=== PATIENT | male | born 1935 | race Caucasian/White ===

== ENCOUNTER → 2016-08-07 | Outpatient (CLI) | payer MEDICARE, OTHER ==
[~2016-08-07] MED LIST: AML5T PO; ASPI81TA27 PO; CLOP75TA28 PO; LISI40TA PO; METF-312 PO; METO100T87 PO
[2016-08-07 10:50] VITALS: BP 140/70
[2016-08-07 17:40] LABS: Basophils # (auto) 0 uL; Basophils % (auto) 0.2 % (0.0-2.0); Eosinophils # (auto) 0.3 uL; Hematocrit 39.1 % (41.0-53.0); Hemoglobin 12.6 g/dL (13.5-17.5); Lymphocytes # (auto) 1.4 uL; Lymphocytes % (auto) 23.3 % (10.0-50.0); Mean Corpuscular Hemoglobin 30.6 pg (28.0-32.0); Mean Corpuscular Hgb Conc. 32.4 g/dL (32.0-36.0); Mean Corpuscular Volume 94.5 fL (80.0-100.0); Monocytes # (auto) 0.7 uL; Monocytes % (auto) 11.1 % (0.0-12.0); Neutrophils # (auto) 3.7 uL; Neutrophils % (auto) 60.4 % (37.0-80.0); Platelet Count (auto) 262 10^3/uL (140-450); Red Cell Distribution Width 14.4 % (11.6-16.0); White Blood Cell 6.1 10^3/uL (4.4-10.8)
[2016-08-07 17:54] LABS: INR 1.01 (0.9-1.15); Prothrombin Time 10.4 sec (9.37-12.3)
[2016-08-07 18:13] LABS: BUN/Creatinine Ratio 19.8; Calcium 9.3 mg/dL (8.5-10.1); Potassium 4.2 mmol/L (3.5-5.1)
== END | disposition home or self-care (01) ==
LOC: Rad HDHVI 10:46
PROVIDERS: ATTEND Internal Medicine Cardiovascular Disease
DX: I10 Essential (primary) hypertension (principal); D64.9 Anemia, unspecified; R79.1 Abnormal coagulation profile
CPT/HCPCS: 36415; 71020; 80048; 85025; 85610; 85730; G0463

== ENCOUNTER → 2016-08-10 | Day surgery (SDC) | payer MEDICARE, OTHER ==
[~2016-08-10] MED LIST changes: +ANGIOMAX 250 MG VIAL IV ONE; +EPTIFIBATIDE INJ (2MG/ML) 10ML VIAL IV ONE; +IOHEXOL 350 MG/ML 100ML IJ ONE; +LIDOCAINE 2%HCL (LOCAL ANESTH.) INJ 20ML MDV ONE; +MIDAZOLAM HCL 1MG/1ML-2 ML VIAL ONE; +SODIUM CHL 0.9% 0 ML ONE; +fentaNYL CITRATE 100 MCG/2 ML VL ONE
== END | disposition home or self-care (01) ==
LOC: CATH 07:53
PROVIDERS: ATTEND Internal Medicine Cardiovascular Disease
DX: I25.10 Atherosclerotic heart disease of native coronary artery without angina pectoris (principal); I10 Essential (primary) hypertension; I73.9 Peripheral vascular disease, unspecified
CPT/HCPCS: 36246; C1760; C1769; C1887; C1894; J1644; J2250; J3010; J7030; Q9967; 99152

== ENCOUNTER 2019-02-23 21:00 | Emergency (ER) | payer MEDICARE, OTHER ==
[~2019-02-23] VITALS: Ht 182.9 cm; Wt 81.6 kg
[~2019-02-23 21:00] MED LIST changes: -AML5T PO; -ANGIOMAX 250 MG VIAL IV ONE; +ASPI81CH43 PO; -ASPI81TA27 PO; +ATOR20TA PO; +COEN100C15 PO; -EPTIFIBATIDE INJ (2MG/ML) 10ML VIAL IV ONE; +FURO1TAB33 PO; +HYDR-4296 PO; -IOHEXOL 350 MG/ML 100ML IJ ONE; +ISOS5TAB20 PO; -LIDOCAINE 2%HCL (LOCAL ANESTH.) INJ 20ML MDV ONE; -LISI40TA PO; +MAGN400T21 PO; +MET50T PO; -METF-312 PO; -METO100T87 PO; -MIDAZOLAM HCL 1MG/1ML-2 ML VIAL ONE; +MYCO500T PO; +POTA10TA51 PO; +RANO500T2 PO; -SODIUM CHL 0.9% 0 ML ONE; +[UNRECOGNIZED DRUG - CODE] PO; -fentaNYL CITRATE 100 MCG/2 ML VL ONE
[2019-02-23 22:09] LABS: Basophils # (auto) 0 uL; Basophils % (auto) 0.4 % (0.0-2.0); Eosinophils # (auto) 0.1 uL; Eosinophils % (auto) 1.3 % (0.0-7.0); Hematocrit 34.9 % (41.0-53.0); Hemoglobin 11.7 g/dL (13.5-17.5); Lymphocytes # (auto) 1.4 uL; Lymphocytes % (auto) 16.6 % (10.0-50.0); Mean Corpuscular Hemoglobin 30.9 pg (28.0-32.0); Mean Corpuscular Hgb Conc. 33.6 g/dL (32.0-36.0); Monocytes # (auto) 0.8 uL; Monocytes % (auto) 10.2 % (0.0-12.0); Neutrophils # (auto) 5.9 uL; Neutrophils % (auto) 71.5 % (37.0-80.0); Nucleated Red Blood Cells % 0.1 %; Platelet Count (auto) 350 10^3/uL (140-450); Red Blood Cells 3.79 10^6/uL (4.5-5.90); Red Cell Distribution Width 13.8 % (11.8-14.3); White Blood Cell 8.3 10^3/uL (4.4-10.8)
[2019-02-23 22:21] LABS: Alanine Aminotransferase 29 U/L (16-61); Albumin 3.1 g/dL (3.4-5.0); Anion Gap 10 (5-15); Aspartate Aminotransferase 23 U/L (15-37); Blood Urea Nitrogen 21 mg/dL (7-18); Calcium 9.3 mg/dL (8.5-10.1); Carbon Dioxide 26 mmol/L (21-32); Chloride 108 mmol/L (98-107); GFR African American 92 mL/min; GFR Non-African American 76 mL/min; Glucose 131 mg/dL (74-106); Potassium 3.9 mmol/L (3.5-5.1); Sodium 144 mmol/L (136-145)
[2019-02-23 22:28] LABS: Alkaline Phosphatase 81 U/L (45-117); Bilirubin, Total 0.2 mg/dL (0.2-1.0); Total Protein 7.1 g/dL (6.4-8.2)
[2019-02-23 22:36] LABS: INR 0.97 (0.9-1.15); Partial Thromboplastin Time 29.9 sec (23.64-32.05)
[2019-02-24] MEDS ORDERED: ONDANSETRON HCL 4 MG/2 ML VIAL IV ONE (00:30)
[2019-02-24] MEDS ORDERED: MORPHINE SULFATE 4 MG/ML SYR/VIAL IV ONE (00:30)
[2019-02-24] MEDS ORDERED: HYDROcodone-ACET 5/325MG TAB PO ONE (04:15)
[2019-02-24 06:31] VITALS: BP 147/45
== END 2019-02-24 07:34 | disposition home or self-care (01) ==
LOC: ER 21:04
DX: S50.02XA Contusion of left elbow, initial encounter (principal); R07.9 Chest pain, unspecified; I25.10 Atherosclerotic heart disease of native coronary artery without angina pectoris; E78.5 Hyperlipidemia, unspecified; F17.210 Nicotine dependence, cigarettes, uncomplicated; Z98.61 Coronary angioplasty status; Z88.0 Allergy status to penicillin; Z79.82 Long term (current) use of aspirin; Z79.899 Other long term (current) drug therapy; Z79.01 Long term (current) use of anticoagulants; Z79.84 Long term (current) use of oral hypoglycemic drugs; W18.39XA Other fall on same level, initial encounter; Y93.89 Activity, other specified; Y99.8 Other external cause status; Y92.89 Other specified places as the place of occurrence of the external cause
CPT/HCPCS: 36415; 71045; 73070; 73090; 80053; 83880; 84484; 85025; 85610; 85730; 93005; 96374; 96375; 99284; J2270; J2405

== ENCOUNTER → 2019-02-28 | Outpatient (CLI) | payer MEDICARE, OTHER ==
[~2019-02-28] MED LIST changes: +IOHEXOL 350 MG/ML 100ML IJ ONE
[2019-02-28 11:00] VITALS: BP 168/60
--- NOTE | 2019-02-28 11:00 | NUR ---
IV insertion IV access obtained, via clean sterile technique by inserting 22 gauge catheter at RAC after 1 attempt(s). IV secured properly. No trauma to site. Patient tolerated procedure well.
--- NOTE | 2019-02-28 11:29 | NUR ---
IV removal IV DC'd with sterile technique, catheter fully intact. Pressure dressing applied to site. Patient tolerated procedure well.
[2019-02-28 11:30] VITALS: BP 156/43
--- NOTE | 2019-02-28 11:30 | NUR ---
[facility] Discharge Instructions See e-MAR for any mediations given with this visit. Patient education given on disease process. Patient verbalized understanding. Previous labs reviewed. Patient discharged in stable condition with after care instructions and follow up appointment. NOTE PATIENT EDUCATED TO DRINK PLENTY OF FLUIDS OVER THE NEXT 24HRS, PT VERBALIZED UNDERSTANDING.
== END | disposition home or self-care (01) ==
LOC: Rad HDHVI 10:46
PROVIDERS: ATTEND Internal Medicine Cardiovascular Disease
DX: I34.0 Nonrheumatic mitral (valve) insufficiency (principal); R94.4 Abnormal results of kidney function studies; R06.02 Shortness of breath; R07.9 Chest pain, unspecified; J43.9 Emphysema, unspecified; J98.4 Other disorders of lung; I70.90 Unspecified atherosclerosis
CPT/HCPCS: 36415; 71260; 82565; 93306; G0463; Q9967

== ENCOUNTER → 2019-08-20 | Outpatient (CLI) | payer MEDICARE, OTHER ==
[~2019-08-20] MED LIST changes: +CYANOCOBALAMIN (B-12) 1000 MCG/1 ML VIAL IM ONE; +CYANOCOBALAMIN (B-12) 1000 MCG/1 ML VIAL ONE; +FUROSEMIDE 20 MG/2 ML VIAL IV ONE; +FUROSEMIDE 20 MG/2 ML VIAL ONE; -IOHEXOL 350 MG/ML 100ML IJ ONE; +POTASSIUM CHL 10 Meq TABLET PO ONE; +POTASSIUM CHL 20 Meq TABLET PO ONE
[2019-08-20 14:38] VITALS: BP 143/77
--- NOTE | 2019-08-20 14:38 | NUR ---
PT RECEIVED FROM BACK OFFICE PT RECEIVED FROM BACK OFFICE IS STABLE CONDITION. VSS. HAD ORDERS FROM DR. CASSIDY, WILL CARRY OUT.
--- NOTE | 2019-08-20 14:45 | NUR ---
IV insertion IV access obtained, via clean sterile technique by inserting [22] gauge catheter at [RIGHT FA] after [1] attempt(s). IV secured properly. No trauma to site. Patient tolerated procedure well.
--- NOTE | 2019-08-20 15:04 | NUR ---
IV removal IV DC'd BY WESTON HADLEY with sterile technique, catheter fully intact. Pressure dressing applied to site. Patient tolerated procedure well.
[2019-08-20 15:10] VITALS: BP 159/67
--- NOTE | 2019-08-20 15:10 | NUR ---
[facility]IC Discharge Instructions See e-MAR for any mediations given with this visit. Patient education given on disease process. Patient verbalized understanding. Previous labs reviewed. Patient discharged in stable condition with after care instructions and follow up appointment. NOTES LASIX IVP X1 ADMIN BY WESTON CHEN KCL PO X1 ADMIN BY WESTON CHEN VIT B12 IM X1 RIGHT DELTOID ADMIN BY WESTON CHEN
== END | disposition home or self-care (01) ==
LOC: CHF HDHVI 14:34
PROVIDERS: ATTEND Internal Medicine Cardiovascular Disease
DX: I11.0 Hypertensive heart disease with heart failure (principal); I50.9 Heart failure, unspecified; J44.9 Chronic obstructive pulmonary disease, unspecified; R53.83 Other fatigue; I25.10 Atherosclerotic heart disease of native coronary artery without angina pectoris; I21.4 Non-ST elevation (NSTEMI) myocardial infarction; I25.2 Old myocardial infarction; I73.9 Peripheral vascular disease, unspecified; I48.91 Unspecified atrial fibrillation; I42.0 Dilated cardiomyopathy; E78.5 Hyperlipidemia, unspecified
CPT/HCPCS: 96372; 96374; G0463; J1940; J3420

== ENCOUNTER → 2019-09-12 | Outpatient (CLI) | payer MEDICARE, OTHER ==
[~2019-09-12] MED LIST changes: -CYANOCOBALAMIN (B-12) 1000 MCG/1 ML VIAL IM ONE; -CYANOCOBALAMIN (B-12) 1000 MCG/1 ML VIAL ONE; -FUROSEMIDE 20 MG/2 ML VIAL IV ONE; -FUROSEMIDE 20 MG/2 ML VIAL ONE; +IOHEXOL 350 MG/ML 100ML IJ ONE; -POTASSIUM CHL 10 Meq TABLET PO ONE; -POTASSIUM CHL 20 Meq TABLET PO ONE; +READI-CAT 2 (BARIUM SULF)(VANILLA SMOOTHIE) 450ML ONE
[2019-09-12 09:00] VITALS: BP 152/67
--- NOTE | 2019-09-12 09:05 | NUR ---
IV insertion IV access obtained, via clean sterile technique by inserting 22 gauge catheter at after attempt(s). IV secured properly. No trauma to site. Patient tolerated procedure well. NOTE PUT IN BY CORY CHEN
--- NOTE | 2019-09-12 10:05 | NUR ---
IV removal IV DC'd with sterile technique, catheter fully intact. Pressure dressing applied to site. Patient tolerated procedure well. Discharged with aftercare instructions per MD. NOTE: REMOVED BY ROCK CHEN
[2019-09-12 10:06] VITALS: BP 109/70
--- NOTE | 2019-09-12 10:06 | NUR ---
Discharge Instructions See e-MAR for any mediations given with this visit. Patient education given on disease process. Patient verbalized understanding. Previous labs reviewed. Patient discharged in stable condition with after care instructions and follow up appointment. NOTE EDUCATION GIVEN TO PT TO HOLD METFORMIN FOR 48 HOURS. PT VERBALIZED UNDERSTANDING. HANDOUT GIVEN. EDUCATED PT TO DRINK EXTRA FLUIDS FOR THE NEXT 24 HOURS
[2019-09-12 10:11] VITALS: BP 152/67
== END | disposition home or self-care (01) ==
LOC: Rad HDHVI 08:44
PROVIDERS: ATTEND Internal Medicine Cardiovascular Disease
DX: K80.20 Calculus of gallbladder without cholecystitis without obstruction (principal); K86.89 Other specified diseases of pancreas; R31.9 Hematuria, unspecified; E78.5 Hyperlipidemia, unspecified; I25.10 Atherosclerotic heart disease of native coronary artery without angina pectoris; I10 Essential (primary) hypertension; E11.9 Type 2 diabetes mellitus without complications; I70.0 Atherosclerosis of aorta
CPT/HCPCS: 74178; G0463; Q9967

== ENCOUNTER → 2019-12-11 | Outpatient (CLI) | payer MEDICARE, OTHER ==
[~2019-12-11] MED LIST changes: -IOHEXOL 350 MG/ML 100ML IJ ONE; -READI-CAT 2 (BARIUM SULF)(VANILLA SMOOTHIE) 450ML ONE
== END | disposition home or self-care (01) ==
LOC: Rad HDHVI 14:31
PROVIDERS: ATTEND Internal Medicine Cardiovascular Disease
DX: I50.23 Acute on chronic systolic (congestive) heart failure (principal); I27.20 Pulmonary hypertension, unspecified; I25.5 Ischemic cardiomyopathy
CPT/HCPCS: 93306

== ENCOUNTER 2020-03-03 16:54 | Inpatient (IN) | payer MEDICARE, OTHER ==
[~2020-03-03] VITALS: Ht 185.4 cm; Wt 84.9 kg
--- NOTE | 2020-03-03 20:30 | NUR ---
Spoke to Dr. Mullen and informed of Direct Admit from [place]. Received orders at this time and read back, will carry out orders
[2020-03-03] MEDS ORDERED: NITROGLYCERIN 0.4 MG SL TAB SL PRN (20:45)
[2020-03-03] MEDS ORDERED: MORPHINE SULF INJ 2 MG/ML SYRINGE 1ML IV PRN (20:45)
[2020-03-03] MEDS ORDERED: DEXTROSE (50%) 50ML SYRG IV PRN (21:00)
--- NOTE | 2020-03-03 21:00 | NUR ---
Telemetry admit from ER DEBRA SMITH admitted to Telemetry unit after SBAR received. Patient oriented to Rosa Boateng RN primary RN, unit, room, bed, and unit policies regarding patient care and visiting hours. Patient now on continuous telemetry monitoring, tele box # 60 and telemetry reading on arrival to unit is SR. Patient placed on bedside oxygen at 2 Lpm/NC, weighed by bedscale and encouraged to call if they need something. Instructed on POC. All questions and concerns addressed, patient verbalized understanding, will continue to monitor Note: []
[2020-03-03 21:45] LABS: Basophils # (auto) 0.1 10 ^3/uL (0-0.2); Basophils % (auto) 0.8 % (0.0-2.0); Eosinophils # (auto) 0.3 10 ^3/uL (0-0.8); Eosinophils % (auto) 3.7 % (0.0-7.0); Hematocrit 33.7 % (41.0-53.0); Lymphocytes # (auto) 0.9 10 ^3/uL (0.4-5.4); Lymphocytes % (auto) 10.2 % (10.0-50.0); Mean Corpuscular Hemoglobin 29.3 pg (28.0-32.0); Mean Corpuscular Hgb Conc. 32.6 g/dL (32.0-36.0); Mean Corpuscular Volume 89.9 fL (80.0-100.0); Monocytes # (auto) 0.8 10 ^3/uL (0-1.3); Monocytes % (auto) 9.1 % (0.0-12.0); Neutrophils # (auto) 6.6 10 ^3/uL (1.6-8.6); Neutrophils % (auto) 76.2 % (37.0-80.0); Platelet Count (auto) 289 10^3/uL (140-450); Red Blood Cells 3.75 10^6/uL (4.5-5.90); Red Cell Distribution Width 15.3 % (11.8-14.3); White Blood Cell 8.7 10^3/uL (4.4-10.8)
[2020-03-03 22:00] VITALS: BP 142/72
[2020-03-03 22:00] LABS: Albumin 2.4 g/dL (3.4-5.0); BUN/Creatinine Ratio 40.7; Calcium 9.1 mg/dL (8.5-10.1); Potassium 4.1 mmol/L (3.5-5.1)
[2020-03-03 22:03] LABS: Bilirubin, Total 0.6 mg/dL (0.2-1.0); Total Protein 5.9 g/dL (6.4-8.2)
[2020-03-03] MEDS: FUROSEMIDE INJECTION 100 MG in D5W 5% 100 ML IV SCH (22:05)
[2020-03-03] MEDS: DOBUTamine 1000MCG/ML 250 ML IV SCH (22:05)
[2020-03-03 23:00] VITALS: BP 142/72
--- NOTE | 2020-03-03 23:15 | NUR ---
IV insertion 2nd IV access obtained, via clean sterile technique by inserting 22 gauge catheter at after [3] attempt(s). IV secured properly. No trauma to site. Patient tolerated well. NOTE: []
[2020-03-03] MEDS: SACUBITRIL-VALSARTAN 24mg/26mg TAB PO SCH (23:18)
[2020-03-03] MEDS: POTASSIUM CHL 20 Meq TABLET PO SCH (23:18)
[2020-03-03] MEDS: MAGNESIUM OXIDE 400 MG TAB PO SCH (23:19)
[2020-03-03] MEDS: ATORVASTATIN 20 MG TAB PO SCH (23:19)
[2020-03-04] MEDS: ACCU-CHEK COMFORT CURVE STRIP VI SCH ×5 (00:39→22:31)
[2020-03-04] MEDS: InsuLIN REG 1unit/0.01ml Soln (100units/ml) SC SCH ×5 (00:40→22:31)
[2020-03-04 01:55] VITALS: BP 142/72
[2020-03-04 06:05] VITALS: BP 125/53
[2020-03-04] MEDS: POTASSIUM CHL 20 Meq TABLET PO SCH ×3 (06:46→22:30)
[2020-03-04] MEDS: DOBUTamine 1000MCG/ML 250 ML IV SCH ×2 (06:47→17:41)
[2020-03-04 07:29] LABS: Calcium 8.6 mg/dL (8.5-10.1); Potassium 4.3 mmol/L (3.5-5.1)
--- NOTE | 2020-03-04 07:30 | NUR ---
Opening shift note assumed care, patient currently sleeping. No s/s of distress noted. Patient on 2L O2 via NC, respiration even and unlabored. Bed in low position, locked, call light within reach. Will continue care.
[2020-03-04 07:32] LABS: BUN/Creatinine Ratio 37.5
[2020-03-04 09:00] VITALS: BP 110/58
[2020-03-04] MEDS ORDERED: ASPirin 81 mg TAB PO SCH (10:00)
[2020-03-04] MEDS ORDERED: APIXABAN 5 MG TAB PO SCH (10:00)
[2020-03-04] MEDS: AMIODARONE HCL 200 MG TAB PO SCH (11:14)
[2020-03-04] MEDS: SACUBITRIL-VALSARTAN 24mg/26mg TAB PO SCH ×2 (11:15→22:30)
[2020-03-04] MEDS: PANTOPRAZOLE 40 MG TAB PO SCH (11:15)
[2020-03-04] MEDS: MAGNESIUM OXIDE 400 MG TAB PO SCH ×2 (11:16→22:31)
[2020-03-04] MEDS: METOPROLOL SUCCINATE XL 50 MG TAB PO SCH (11:16)
[2020-03-04 13:00] VITALS: BP 121/53
--- NOTE | 2020-03-04 13:15 | NUR ---
6 round Vtach Per monitor and storage bin tender patient experiences 6 round of Vtach. Patient assessed no s/s of distress, or chest pain reported at this time. Dr. Mullen has been notified. no new orders received.
--- NOTE | 2020-03-04 14:08 | NUR ---
assessment re: ss consult dc planning and lives alone Patient is a 85 year old male who is alert and oriented. Patients cognitive abilities are intact. Prior to admission patient lived home alone and functioned independently. Patient informed me he was able to care for his own ADLs. Per patient he will go home with his son Juan on discharge with home health. Patient informed me he has been getting weak due to his heart issues. Patient informed me he fell 3 weeks ago, but he was able to get up and care for himself. Patient is refusing SNF. Patient informed me his PCP is Dr Hough in [place] and Dr Mullen. Patient has a rollator and a cane for home use. I will continue to monitor and follow up as appropriate. I informed patient he has a right to speak to a social scientist regarding all care. I informed patient he has a right to participate in any and all discharge planning. Patient does not have a POA and advanced directive. I have offered patient information on POA and advanced directives. I informed the patient the advantages and benefits of having an Advanced Directive. Patient verbalized understanding and agreed to discharge plan. Addendum: 03/04/20 at 1416 by Abigail GARAY Amended: Links added.
[2020-03-04 17:31] LABS: BUN/Creatinine Ratio 31.7; Calcium 8.4 mg/dL (8.5-10.1); Potassium 4.1 mmol/L (3.5-5.1)
[2020-03-04 17:33] LABS: Basophils # (auto) 0 10 ^3/uL (0-0.2); Basophils % (auto) 0.2 % (0.0-2.0); Eosinophils # (auto) 0.1 10 ^3/uL (0-0.8); Eosinophils % (auto) 0.9 % (0.0-7.0); Hematocrit 35.6 % (41.0-53.0); Hemoglobin 11.4 g/dL (13.5-17.5); Lymphocytes # (auto) 0.7 10 ^3/uL (0.4-5.4); Lymphocytes % (auto) 9.8 % (10.0-50.0); Mean Corpuscular Hemoglobin 28.9 pg (28.0-32.0); Mean Corpuscular Hgb Conc. 32.1 g/dL (32.0-36.0); Mean Corpuscular Volume 89.9 fL (80.0-100.0); Monocytes # (auto) 0.7 10 ^3/uL (0-1.3); Neutrophils # (auto) 6.1 10 ^3/uL (1.6-8.6); Neutrophils % (auto) 80.1 % (37.0-80.0); Nucleated Red Blood Cells % 0.1 %; Platelet Count (auto) 262 10^3/uL (140-450); Red Blood Cells 3.96 10^6/uL (4.5-5.90); Red Cell Distribution Width 15.3 % (11.8-14.3); White Blood Cell 7.6 10^3/uL (4.4-10.8)
[2020-03-04 17:38] LABS: INR 1.06 (0.9-1.15); Partial Thromboplastin Time 27.2 sec (23.0-31.2)
[2020-03-04] MEDS: FUROSEMIDE INJECTION 100 MG in D5W 5% 100 ML IV SCH (17:42)
[2020-03-04 18:00] VITALS: BP 119/47
--- NOTE | 2020-03-04 19:35 | NUR ---
Opening shift note Assumed care of patient, alert,oriented. No s/s of distress noted. Patient on 2L O2 via NC, respiration even and unlabored. Bed in low position, locked, call light within reach. Will continue care.
[2020-03-04 22:00] VITALS: BP 132/56
[2020-03-04] MEDS: ATORVASTATIN 20 MG TAB PO SCH (22:30)
[2020-03-05] MEDS: FUROSEMIDE INJECTION 100 MG in D5W 5% 100 ML IV SCH ×3 (02:28→22:28)
[2020-03-05] MEDS: DOBUTamine 1000MCG/ML 250 ML IV SCH ×3 (03:33→22:35)
[2020-03-05 05:30] VITALS: BP 104/44
[2020-03-05] MEDS: InsuLIN REG 1unit/0.01ml Soln (100units/ml) SC SCH ×4 (05:58→22:41)
[2020-03-05] MEDS: ACCU-CHEK COMFORT CURVE STRIP VI SCH ×4 (05:58→22:29)
[2020-03-05] MEDS: POTASSIUM CHL 20 Meq TABLET PO SCH ×3 (05:59→22:00)
--- NOTE | 2020-03-05 06:30 | NUR ---
Linens changed, CHG wipes done, maintained on NPO, will continue to monitor
--- NOTE | 2020-03-05 07:35 | NUR ---
Opening shift note Assumed care of patient from NOC RN. Patient is AOx4, no s/s of distress noted. Bed is in lowest locked position, side rails up x2, and call light is within reach. Updated patient on plan of care and patient ,educated patient to call for assistance as needed. verbalized understanding. Will continue to monitor q1hr and PRN.
[2020-03-05 09:00] VITALS: BP 108/54
[2020-03-05] MEDS: PANTOPRAZOLE 40 MG TAB PO SCH (09:15)
[2020-03-05] MEDS: SACUBITRIL-VALSARTAN 24mg/26mg TAB PO SCH ×2 (09:15→22:27)
[2020-03-05] MEDS: MAGNESIUM OXIDE 400 MG TAB PO SCH ×2 (09:15→22:28)
--- NOTE | 2020-03-05 09:15 | NUR ---
Patient nauseated Patient stated feeling nauseated. No PRN anti-nausea medications available. Will notify MD.
[2020-03-05] MEDS: AMIODARONE HCL 200 MG TAB PO SCH (09:17)
[2020-03-05] MEDS: METOPROLOL SUCCINATE XL 50 MG TAB PO SCH (09:18)
--- NOTE | 2020-03-05 09:23 | NUR ---
Called MD Left message regarding patient status. Awaiting call back.
--- NOTE | 2020-03-05 09:35 | NUR ---
Received call back from MD Updated MD on patient status. New orders received, will follow through will continue care. Addendum: 03/05/20 at 1326 by CATRACHITA OZUNA RN PER HOLD LASIX AND POTASSIUM.
[2020-03-05] MEDS: ONDANSETRON HCL 4 MG/2 ML VIAL IV PRN (10:33)
--- NOTE | 2020-03-05 12:00 | NUR ---
Patient off unit Patient taken to production laborer for procedure.
[2020-03-05 13:00] VITALS: BP 130/64
[2020-03-05] MEDS ORDERED: IOHEXOL 350 MG/ML 100ML IJ ONE (13:16)
[2020-03-05] MEDS ORDERED: LIDOCAINE 2%HCL (LOCAL ANESTH.) INJ 20ML MDV ONE (13:16)
[2020-03-05] MEDS ORDERED: ONDANSETRON HCL 4 MG/2 ML VIAL ONE (13:26)
[2020-03-05] MEDS ORDERED: fentaNYL CITRATE 100 MCG/2 ML VL ONE (13:31)
[2020-03-05] MEDS ORDERED: ANGIOMAX 250 MG VIAL IV ONE (13:31)
[2020-03-05] MEDS ORDERED: MIDAZOLAM HCL 1MG/1ML-2 ML VIAL ONE (13:31)
[2020-03-05] MEDS ORDERED: SODIUM CHL 0.9% 0 ML ONE (13:31)
[2020-03-05] MEDS ORDERED: DOBUTamine 1000MCG/ML 250 ML IV ONE (13:35)
--- NOTE | 2020-03-05 14:57 | NUR ---
Report Received report from photographic laboratory supervisor GUSTAVO Mora.
--- NOTE | 2020-03-05 15:26 | NUR ---
Patient back on unit Patient brought back to unit by industrial laborer RNs. Patient is AOx4, so s/s of distress noted. Dressing is clean dry and intact. Vitals are 73bpm, 141/47 b/p, 14 RR. Will continue to monitor q1hr and PRN.
[2020-03-05 16:59] VITALS: BP 141/47
--- NOTE | 2020-03-05 17:25 | NUR ---
Patient assessment Patient stated " I am having difficultly falling asleep, I feel anxious at night and cannot sleep, can I get something to help me sleep?" Will notify MD. Will continue to monitor.
--- NOTE | 2020-03-05 17:31 | NUR ---
Called MD Left message to MD regarding patient status. Awaiting call back.
--- NOTE | 2020-03-05 17:35 | NUR ---
Received call back Received call back from Dr. Mullen. Updated MD on patient status. New orders received. Per MD continue to hold Lasix and Potassium.
--- NOTE | 2020-03-05 19:12 | NUR ---
End of shift report Endorsed care to NOC GUSTAVO Mena. No s/s of distress noted.
--- NOTE | 2020-03-05 19:20 | NUR ---
Opening shift note Assumed care of patient who is A&Ox4, respirations even and non-labored with no s/s of distress. Discussed POC with patient who verbalized understanding. Groin dressing CDI with no s/s of swelling or bleeding. Dobutamine drip running 5 mcg/kg/min. Bed in lowest locked position with 2 side rails up, call light within reach. Will continue to monitor.
[2020-03-05 22:00] VITALS: BP 116/56
[2020-03-05] MEDS: ATORVASTATIN 20 MG TAB PO SCH (22:28)
[2020-03-05] MEDS: ZOLPIDEM TARTRATE 5 MG TAB PO PRN (22:53)
--- NOTE | 2020-03-06 01:20 | NUR ---
Patient fall Found patient on floor at the end of the bed. Patient stated that he was supposed to be meeting his son. Patient A&Ox2 to name and . VS: HR 71, 138/68, 93%, RR 18, and patient denied any pain. Assisted patient back into bed with the help of nursing staff. Noted 3 inch skin tear to the left forearm and 2 inch diameter pink coloring to skin above the eyebrows. Cleansed skin tear with NS, applied non-stick dressing and wrapped with kerlix. Patient placed back on 2L NC, HOB>30, moved to sitter room 278A. Patient reassessed, A&Ox3 to name, , and situation. Bed alarm on, two side rails up, sitter bedside. Will contact physician and warehouse specialist.
--- NOTE | 2020-03-06 01:30 | NUR ---
Attempted to notify Dr. Mullen Will try to re-contact again shortly.
--- NOTE | 2020-03-06 01:54 | NUR ---
Attempted to contact Dr. Mullen
--- NOTE | 2020-03-06 02:06 | NUR ---
Attempted to page Dr. Mullen Talked to Tarun at the [facility].
--- NOTE | 2020-03-06 02:52 | NUR ---
Paged Dr. Morales Attempted to reach Dr. Mullen and was unable.
--- NOTE | 2020-03-06 03:10 | NUR ---
Dr. winters returned call CT of head and xray of left arm per protocol
--- NOTE | 2020-03-06 03:38 | NUR ---
Contacted radiology regarding CT/Xray
[2020-03-06 05:00] VITALS: BP 122/60
--- NOTE | 2020-03-06 05:19 | NUR ---
Patient VS: HR 62, 95%, 124/85, RR 18, 0/10 pain Patient sleeping, awoke to name A&Ox3, without s/s of distress at this time, sitter bedside.
--- NOTE | 2020-03-06 05:35 | NUR ---
Attempted to contact patients son Juan Left message regarding patients status and call back. Will continue to call.
[2020-03-06] MEDS: POTASSIUM CHL 20 Meq TABLET PO SCH ×3 (06:00→22:00)
--- NOTE | 2020-03-06 06:15 | NUR ---
Took patient to radiology for CT/xray CT of head and left arm xray. Patient tolerated well.
[2020-03-06] MEDS: ACCU-CHEK COMFORT CURVE STRIP VI SCH ×4 (06:38→22:36)
[2020-03-06] MEDS: DOBUTamine 1000MCG/ML 250 ML IV SCH ×2 (06:38→14:24)
[2020-03-06] MEDS: InsuLIN REG 1unit/0.01ml Soln (100units/ml) SC SCH ×4 (06:46→22:40)
--- NOTE | 2020-03-06 07:00 | NUR ---
Spoke with patients son, Juan Discussed patients status and answered questions
[2020-03-06 09:00] VITALS: BP 115/40
[2020-03-06] MEDS: FUROSEMIDE INJECTION 100 MG in D5W 5% 100 ML IV SCH ×2 (09:00→17:50)
[2020-03-06] MEDS: MAGNESIUM OXIDE 400 MG TAB PO SCH ×2 (09:13→22:38)
[2020-03-06] MEDS: METOPROLOL SUCCINATE XL 50 MG TAB PO SCH (09:14)
[2020-03-06] MEDS: PANTOPRAZOLE 40 MG TAB PO SCH (09:14)
[2020-03-06] MEDS: AMIODARONE HCL 200 MG TAB PO SCH (09:14)
[2020-03-06] MEDS: SACUBITRIL-VALSARTAN 24mg/26mg TAB PO SCH ×2 (09:14→22:37)
[2020-03-06 13:00] VITALS: BP 113/42
--- NOTE | 2020-03-06 19:25 | NUR ---
Opening shift note Assumed care of patient who is A&Ox4. Discussed POC, recent fall, and the need to call for assistance. Patient verbalized understanding. Patient on 2L NC, Dobutamine drip running at 5 mcg/kg/min. Bed in lowest locked position with 2 side rails up, call light within reach. Sitter bedside stating that patient has been using the BSC throughout the day, standby assist, and no difficulties with weakness or dizziness. Bed alarm on, will continue to monitor.
[2020-03-06] MEDS: ATORVASTATIN 20 MG TAB PO SCH (22:38)
[2020-03-07] MEDS: DOBUTamine 1000MCG/ML 250 ML IV SCH ×3 (01:57→23:04)
--- NOTE | 2020-03-07 03:45 | NUR ---
IV removal IV DC'd with clean sterile technique, catheter fully intact. Pressure dressing applied to site. Patient tolerated well. NOTE: [] Addendum: 03/07/20 at 0416 by ULICES FUENTES RN RN Accidental computer input error. Patient removed IV by accident, pressure dressing applied.
--- NOTE | 2020-03-07 04:16 | NUR ---
IV insertion IV access obtained, via clean sterile technique by inserting 20 gauge catheter at right hand after 1 attempt. IV secured properly. No trauma to site. Patient tolerated well.
[2020-03-07] MEDS: FUROSEMIDE INJECTION 100 MG in D5W 5% 100 ML IV SCH ×3 (05:00→22:53)
[2020-03-07] MEDS: POTASSIUM CHL 20 Meq TABLET PO SCH ×3 (06:00→22:00)
[2020-03-07] MEDS: ACCU-CHEK COMFORT CURVE STRIP VI SCH ×4 (06:26→22:00)
[2020-03-07] MEDS: InsuLIN REG 1unit/0.01ml Soln (100units/ml) SC SCH ×4 (06:30→23:07)
[2020-03-07 08:00] VITALS: BP 117/52
[2020-03-07] MEDS: ONDANSETRON HCL 4 MG/2 ML VIAL IV PRN ×2 (08:40→17:29)
[2020-03-07] MEDS: METOPROLOL SUCCINATE XL 50 MG TAB PO SCH (10:00)
[2020-03-07] MEDS: SACUBITRIL-VALSARTAN 24mg/26mg TAB PO SCH ×2 (10:41→23:04)
[2020-03-07] MEDS: PANTOPRAZOLE 40 MG TAB PO SCH (10:41)
[2020-03-07] MEDS: AMIODARONE HCL 200 MG TAB PO SCH (10:41)
[2020-03-07] MEDS: MAGNESIUM OXIDE 400 MG TAB PO SCH ×2 (10:41→23:04)
--- NOTE | 2020-03-07 12:37 | NUR ---
Est energy needs 1718-1975kcal (20-23 kcal/kg BW 85.9kg) Est protein needs 69-86g (0.8-1g/kg BW 85.6kg) Will reassess prn. Addendum: 03/07/20 at [address] Amended: Links added.
[2020-03-07 13:00] VITALS: BP 130/48
[2020-03-07 17:00] VITALS: BP 123/58
--- NOTE | 2020-03-07 19:25 | NUR ---
Opening shift note Assumed care of patient who is A&Ox4, respirations even and non-labored with no s/s of distress. Discussed POC with patient who verbalized understanding. Dobutamine running at 5 mcg/kg/min, 2L NC. Bed in lowest locked position with 2 side rails up, call light within reach, sitter bedside. Will continue to monitor.
[2020-03-07 22:06] VITALS: BP 129/56
[2020-03-07] MEDS: ATORVASTATIN 20 MG TAB PO SCH (23:04)
[2020-03-08 05:07] VITALS: BP 126/51
[2020-03-08] MEDS: POTASSIUM CHL 20 Meq TABLET PO SCH ×3 (06:00→21:43)
[2020-03-08] MEDS: ACCU-CHEK COMFORT CURVE STRIP VI SCH ×4 (06:23→21:43)
[2020-03-08] MEDS: InsuLIN REG 1unit/0.01ml Soln (100units/ml) SC SCH ×4 (06:24→21:49)
[2020-03-08] MEDS: DOBUTamine 1000MCG/ML 250 ML IV SCH ×2 (06:43→16:51)
[2020-03-08 08:41] VITALS: BP 118/43
[2020-03-08] MEDS: AMIODARONE HCL 200 MG TAB PO SCH (09:34)
[2020-03-08] MEDS: METOPROLOL SUCCINATE XL 50 MG TAB PO SCH (09:34)
[2020-03-08] MEDS: PANTOPRAZOLE 40 MG TAB PO SCH (09:34)
[2020-03-08] MEDS: MAGNESIUM OXIDE 400 MG TAB PO SCH ×2 (09:34→21:43)
[2020-03-08] MEDS: SACUBITRIL-VALSARTAN 24mg/26mg TAB PO SCH ×2 (09:34→21:43)
[2020-03-08] MEDS: FUROSEMIDE INJECTION 100 MG in D5W 5% 100 ML IV SCH ×2 (11:00→21:00)
[2020-03-08 16:46] VITALS: BP 115/63
--- NOTE | 2020-03-08 19:20 | NUR ---
Opening shift note Assumed care of patient from day RNLori. Patient A&Ox4, respirations even and non-labored with no s/s of distress. Discussed POC with patient who verbalized understanding. Had a group conversation with patient and bedside sitter regarding patient safety, ambulating, and BSC use. Bed in lowest locked position with 2 side rails up at this time, call light and urinal within reach, sitter bedside. Will continue to monitor Q1hr and PRN.
[2020-03-08] MEDS: ATORVASTATIN 20 MG TAB PO SCH (21:43)
[2020-03-08 22:00] VITALS: BP 121/59
[2020-03-09] MEDS: ZOLPIDEM TARTRATE 5 MG TAB PO PRN ×2 (00:40→23:10)
[2020-03-09] MEDS: DOBUTamine 1000MCG/ML 250 ML IV SCH ×3 (02:15→19:42)
[2020-03-09 05:00] VITALS: BP 126/60
[2020-03-09] MEDS: POTASSIUM CHL 20 Meq TABLET PO SCH ×3 (06:00→22:00)
[2020-03-09] MEDS: InsuLIN REG 1unit/0.01ml Soln (100units/ml) SC SCH ×4 (06:09→22:00)
[2020-03-09] MEDS: FUROSEMIDE INJECTION 100 MG in D5W 5% 100 ML IV SCH ×3 (06:09→23:26)
[2020-03-09] MEDS: ACCU-CHEK COMFORT CURVE STRIP VI SCH ×4 (06:09→22:00)
--- NOTE | 2020-03-09 07:45 | NUR ---
Opening Shift Note Assumed care of patient, who is alert and oriented x4. Respirations are even and unlabored. No S/S of distress/SOB or pain. Bed is low, locked with 2x side rails up. Call light is within reach. ladies attendant at bedside. Instructed on POC and to call for assist PRN, will continue to monitor for changes Q1hr and PRN.
[2020-03-09] MEDS: MAGNESIUM OXIDE 400 MG TAB PO SCH ×2 (09:39→23:11)
[2020-03-09] MEDS: SACUBITRIL-VALSARTAN 24mg/26mg TAB PO SCH ×2 (09:39→23:10)
[2020-03-09] MEDS: PANTOPRAZOLE 40 MG TAB PO SCH (09:40)
[2020-03-09] MEDS: METOPROLOL SUCCINATE XL 50 MG TAB PO SCH (09:40)
[2020-03-09] MEDS: AMIODARONE HCL 200 MG TAB PO SCH (09:40)
[2020-03-09 17:00] VITALS: BP 141/59
[2020-03-09 22:00] VITALS: BP 132/56
[2020-03-09] MEDS: ATORVASTATIN 20 MG TAB PO SCH (23:11)
[2020-03-10] MEDS: POTASSIUM CHL 20 Meq TABLET PO SCH ×3 (05:00→21:39)
[2020-03-10] MEDS: DOBUTamine 1000MCG/ML 250 ML IV SCH (05:09)
[2020-03-10 05:17] VITALS: BP 118/46
[2020-03-10 05:18] VITALS: BP 124/48
[2020-03-10] MEDS: ACCU-CHEK COMFORT CURVE STRIP VI SCH ×4 (06:56→21:39)
[2020-03-10] MEDS: InsuLIN REG 1unit/0.01ml Soln (100units/ml) SC SCH ×4 (06:56→21:40)
--- NOTE | 2020-03-10 07:40 | NUR ---
OPENING SHIFT NOTE RECEIVED PATIENT AAOX4,PLEASANT AND COOPERATIVE AND VOICED NO C/O PAIN AND WAS IN NO DISTRESS. PATIENT TO C/O FEELING DIZZY ESPECIALLY WHEN HOB IS LOW. SHIFT ASSESSMENT DONE AND CHARTED. PLAN OF CARE, MEDICATIONS,SAFETY AND TREATMENTS DISCUSSED WITH PATIENT AND PATIENT VERBALIZED UNDERSTANDING. SITTER PRESENT AT BEDSIDE FOR SAFETY. WILL CONTINUE TO MONITOR PATIENT.
[2020-03-10 09:00] VITALS: BP_SYST 119; BP_SYST 127; BP_DIAS 59; BP_DIAS 64
[2020-03-10] MEDS: MAGNESIUM OXIDE 400 MG TAB PO SCH ×2 (09:40→21:39)
[2020-03-10] MEDS: SACUBITRIL-VALSARTAN 24mg/26mg TAB PO SCH ×2 (09:40→21:38)
[2020-03-10] MEDS: PANTOPRAZOLE 40 MG TAB PO SCH (09:40)
[2020-03-10] MEDS: METOPROLOL SUCCINATE XL 50 MG TAB PO SCH (09:41)
[2020-03-10] MEDS: AMIODARONE HCL 200 MG TAB PO SCH (09:41)
[2020-03-10 12:39] VITALS: BP 133/71
[2020-03-10] MEDS: FUROSEMIDE INJECTION 100 MG in D5W 5% 100 ML IV SCH ×2 (13:00→23:00)
[2020-03-10 13:58] LABS: Basophils # (auto) 0 10 ^3/uL (0-0.2); Basophils % (auto) 0.5 % (0.0-2.0); Eosinophils # (auto) 0.1 10 ^3/uL (0-0.8); Eosinophils % (auto) 1.6 % (0.0-7.0); Hemoglobin 11.3 g/dL (13.5-17.5); Lymphocytes # (auto) 0.7 10 ^3/uL (0.4-5.4); Lymphocytes % (auto) 11.9 % (10.0-50.0); Mean Corpuscular Hemoglobin 29.4 pg (28.0-32.0); Mean Corpuscular Hgb Conc. 32.4 g/dL (32.0-36.0); Mean Corpuscular Volume 90.7 fL (80.0-100.0); Monocytes # (auto) 0.7 10 ^3/uL (0-1.3); Monocytes % (auto) 11.5 % (0.0-12.0); Neutrophils # (auto) 4.7 10 ^3/uL (1.6-8.6); Neutrophils % (auto) 74.5 % (37.0-80.0); Platelet Count (auto) 217 10^3/uL (140-450); Red Blood Cells 3.85 10^6/uL (4.5-5.90); Red Cell Distribution Width 15.6 % (11.8-14.3); White Blood Cell 6.3 10^3/uL (4.4-10.8)
[2020-03-10 14:19] LABS: Albumin 2.5 g/dL (3.4-5.0); Calcium 8.9 mg/dL (8.5-10.1); Potassium 4.8 mmol/L (3.5-5.1)
[2020-03-10 14:23] LABS: Bilirubin, Total 0.4 mg/dL (0.2-1.0); Total Protein 6.1 g/dL (6.4-8.2)
--- NOTE | 2020-03-10 15:03 | NUR ---
Nutrition Followup Notes Wt: 89.0 kg Pt was sleeping with no family by bedside. per records pt with acute on chronic CHF. pt with no distress noted currently on cardiac diet with adequate Po of > 75% x 4 per RN doc Est energy needs 1718-1976kcal (20-23 kcal/kg BW 85.9kg) Est protein needs 69-86g (0.8-1g/kg BW 85.6kg) Will reassess prn. LABS: [facility] GLU 138 H rest lab wnl GI: Pt had 1 BM today per RN doc. BS: 17 mod risk. Refer to wound assessment report for full details. PES: Overweight aeb pt with a BMI of 25.0 kg/m2 r/t caloric intake in excess of needs Comments Will continue to monitor PO intake, skin status, pertinent labs and weight trends. Will f/u in 3-5 days. 1) Refer pt to [facility]PD on DC. 2) Continue current plan of care
--- NOTE | 2020-03-10 16:20 | NUR ---
MD AT BEDSIDE DR. CASSIDY WAS IN TO SEE PATIENT AND MD LEFT NEW ORDERS.
[2020-03-10 17:03] VITALS: BP 124/49
--- NOTE | 2020-03-10 19:06 | NUR ---
Opening Shift Note Assumed care of patient after receiving report from GUSTAVO Gray. Patient is awake and alert with no S/S of distress/SOB or pain. Call light within reach, bed in lowest locked position x2 side rails, sitter at bedside for safety. Instructed on POC and to call for assist PRN, will continue to monitor for changes Q1hr and PRN.
[2020-03-10] MEDS: ATORVASTATIN 20 MG TAB PO SCH (21:39)
[2020-03-10 22:00] VITALS: BP 115/59
[2020-03-11] MEDS: ONDANSETRON HCL 4 MG/2 ML VIAL IV PRN (03:40)
[2020-03-11 04:32] VITALS: BP 134/46
[2020-03-11] MEDS: POTASSIUM CHL 20 Meq TABLET PO SCH ×3 (05:53→22:00)
[2020-03-11] MEDS: ACCU-CHEK COMFORT CURVE STRIP VI SCH ×4 (06:22→22:03)
[2020-03-11] MEDS: InsuLIN REG 1unit/0.01ml Soln (100units/ml) SC SCH ×4 (06:28→22:07)
--- NOTE | 2020-03-11 07:50 | NUR ---
Opening Shift Note Assumed care of patient, awake and alert. No S/S of distress/SOB or pain. Instructed on POC and to call for assist PRN, will continue to monitor for changes Q1hr and PRN. Bed locked in lowest position with two side rails up and call light in reach.
[2020-03-11 08:00] VITALS: BP 111/52
[2020-03-11 09:00] VITALS: BP 111/52
[2020-03-11] MEDS: FUROSEMIDE INJECTION 100 MG in D5W 5% 100 ML IV SCH ×3 (09:00→17:37)
[2020-03-11] MEDS: METOPROLOL SUCCINATE XL 50 MG TAB PO SCH (10:00)
[2020-03-11] MEDS: SACUBITRIL-VALSARTAN 24mg/26mg TAB PO SCH ×2 (10:18→22:06)
[2020-03-11] MEDS: MAGNESIUM OXIDE 400 MG TAB PO SCH ×2 (10:18→22:06)
[2020-03-11] MEDS: PANTOPRAZOLE 40 MG TAB PO SCH (10:18)
[2020-03-11] MEDS: AMIODARONE HCL 200 MG TAB PO SCH (10:18)
[2020-03-11 13:00] VITALS: BP 130/48
[2020-03-11 17:00] VITALS: BP 126/50
--- NOTE | 2020-03-11 19:06 | NUR ---
Opening Shift Note Assumed care of patient after receiving report. Patient is awake and alert with no S/S of distress/SOB or pain. Call light within reach, bed in lowest locked position x3 side rails with sitter at bedside. Instructed on POC and to call for assist PRN, will continue to monitor for changes Q1hr and PRN.
--- NOTE | 2020-03-11 21:25 | NUR ---
Moved patient to 294-A. Patient in bed lowest locked position, x3 side rails, bed alarm on and patient resting comfortably in bed on 2 L.
[2020-03-11 21:44] VITALS: BP 123/45
[2020-03-11] MEDS: ATORVASTATIN 20 MG TAB PO SCH (22:06)
[2020-03-12] VITALS (7 sets, daily range): BP systolic 109–143; BP diastolic 45–56
[2020-03-12] MEDS: FUROSEMIDE INJECTION 100 MG in D5W 5% 100 ML IV SCH ×2 (05:00→13:09)
[2020-03-12] MEDS: POTASSIUM CHL 20 Meq TABLET PO SCH ×3 (05:37→22:00)
[2020-03-12] MEDS: ACCU-CHEK COMFORT CURVE STRIP VI SCH ×4 (06:41→22:26)
[2020-03-12] MEDS: InsuLIN REG 1unit/0.01ml Soln (100units/ml) SC SCH ×4 (06:44→22:27)
--- NOTE | 2020-03-12 07:45 | NUR ---
ASSISTED PATIENT TO THE BEDSIDE COMMODE, NO DIZZINESS NOTED.
[2020-03-12] MEDS: METOPROLOL SUCCINATE XL 50 MG TAB PO SCH (10:00)
[2020-03-12] MEDS: MAGNESIUM OXIDE 400 MG TAB PO SCH ×2 (11:39→22:26)
[2020-03-12] MEDS: SACUBITRIL-VALSARTAN 24mg/26mg TAB PO SCH ×2 (11:39→22:25)
[2020-03-12] MEDS: AMIODARONE HCL 200 MG TAB PO SCH (11:39)
[2020-03-12] MEDS: PANTOPRAZOLE 40 MG TAB PO SCH (11:40)
--- NOTE | 2020-03-12 14:49 | NUR ---
ASSUMED CARE OF PATIENT: UPDATED ON PLAN OF CARE. PER PATIENT HE STATED, "DR. CASSIDY WAS JUST IN HERE, SAID SUNDAY I CAN GO HOME AND MY SON IS GOING [facility] [place]." THIS RN UNAWARE OF ANY ORDERS. FALL PRECAUTIONS IN PLACE, WILL CONTINUE TO MONITOR.
--- NOTE | 2020-03-12 18:56 | NUR ---
CARE ENDORSED TO NOC RN.
--- NOTE | 2020-03-12 19:00 | NUR ---
Opening Shift Note Assumed care of patient, awake and alert. No S/S of distress/SOB or pain. Instructed on POC and to call for assist PRN, will continue to monitor for changes Q1hr and PRN.
[2020-03-12] MEDS: ATORVASTATIN 20 MG TAB PO SCH (22:26)
[2020-03-13] MEDS: FUROSEMIDE INJECTION 100 MG in D5W 5% 100 ML IV SCH ×3 (01:00→21:00)
[2020-03-13 05:00] VITALS: BP 126/53
[2020-03-13] MEDS: POTASSIUM CHL 20 Meq TABLET PO SCH ×3 (05:02→21:52)
[2020-03-13] MEDS: ACCU-CHEK COMFORT CURVE STRIP VI SCH ×4 (06:20→22:00)
[2020-03-13] MEDS: InsuLIN REG 1unit/0.01ml Soln (100units/ml) SC SCH ×4 (06:21→22:00)
--- NOTE | 2020-03-13 08:03 | NUR ---
Opening Shift Note Assumed care of patient, awake and alert. No S/S of distress/SOB or pain. Instructed on POC and to call for assist PRN, will continue to monitor for changes Q1hr and PRN. Side rails up x 2, bed locked in lowest position, HOB elevated at least 30 degrees, call light is within reach.
[2020-03-13 09:00] VITALS: BP 135/60
[2020-03-13] MEDS: MAGNESIUM OXIDE 400 MG TAB PO SCH ×2 (09:40→21:52)
[2020-03-13] MEDS: SACUBITRIL-VALSARTAN 24mg/26mg TAB PO SCH ×2 (09:40→21:51)
[2020-03-13] MEDS: PANTOPRAZOLE 40 MG TAB PO SCH (09:41)
[2020-03-13] MEDS: AMIODARONE HCL 200 MG TAB PO SCH (09:41)
[2020-03-13] MEDS: METOPROLOL SUCCINATE XL 50 MG TAB PO SCH (10:00)
[2020-03-13 13:00] VITALS: BP 124/52
--- NOTE | 2020-03-13 14:16 | NUR ---
Nutrition Followup Notes Wt: 85.7kg Pt was alert and oriented at time of rounds. Pt reports appetite is good with no GI issues. Pt reports he does not like to eat breakfast. Pt with inadequate po intake aeb pt with an avg po intake of 52% x 2 days per RN note. If pt po intake continues to be poor consider adding oral supplements Est energy needs 1718-1976kcal (20-23 kcal/kg BW 85.9kg) Est protein needs 69-86g (0.8-1g/kg BW 85.6kg) Will reassess prn. LABS: GLUC 132H, Alb 2.5L GI: Pt had 2 BMs today per RN doc. BS: 17 mod risk. Refer to wound assessment report for full details. PES: Overweight aeb pt with a BMI of 25.0 kg/m2 r/t caloric intake in excess of needs Comments Will continue to monitor PO intake, skin status, pertinent labs and weight trends. Will f/u in 3-5 days. 1) Refer pt to OPD on DC. 2) Continue current plan of care
[2020-03-13 17:00] VITALS: BP 128/52
--- NOTE | 2020-03-13 19:00 | NUR ---
CLOSING SHIFT NOTE ENDORSED CARE TO NOC SHIFT RN
[2020-03-13 20:00] VITALS: BP 118/48
[2020-03-13] MEDS: ATORVASTATIN 20 MG TAB PO SCH (21:52)
[2020-03-13 22:00] VITALS: BP 118/48
[2020-03-14 05:00] VITALS: BP 127/54
[2020-03-14] MEDS: POTASSIUM CHL 20 Meq TABLET PO SCH ×3 (06:00→22:00)
[2020-03-14] MEDS: FUROSEMIDE INJECTION 100 MG in D5W 5% 100 ML IV SCH ×2 (06:27→17:00)
[2020-03-14] MEDS: InsuLIN REG 1unit/0.01ml Soln (100units/ml) SC SCH ×4 (06:27→22:21)
[2020-03-14] MEDS: ACCU-CHEK COMFORT CURVE STRIP VI SCH ×4 (06:28→22:21)
[2020-03-14 09:00] VITALS: BP 137/52
[2020-03-14] MEDS: METOPROLOL SUCCINATE XL 50 MG TAB PO SCH (10:26)
[2020-03-14] MEDS: AMIODARONE HCL 200 MG TAB PO SCH (10:27)
[2020-03-14] MEDS: SACUBITRIL-VALSARTAN 24mg/26mg TAB PO SCH ×2 (10:27→22:18)
[2020-03-14] MEDS: MAGNESIUM OXIDE 400 MG TAB PO SCH ×2 (10:27→22:19)
[2020-03-14] MEDS: PANTOPRAZOLE 40 MG TAB PO SCH (10:27)
[2020-03-14 15:16] VITALS: BP 136/59
[2020-03-14 16:43] VITALS: BP 114/47
[2020-03-14 20:00] VITALS: BP 110/42
[2020-03-14 22:00] VITALS: BP 110/42
[2020-03-14] MEDS: ATORVASTATIN 20 MG TAB PO SCH (22:19)
[2020-03-15] MEDS: FUROSEMIDE INJECTION 100 MG in D5W 5% 100 ML IV SCH ×3 (03:00→23:00)
[2020-03-15 05:00] VITALS: BP 121/54
[2020-03-15] MEDS: POTASSIUM CHL 20 Meq TABLET PO SCH ×3 (05:58→21:50)
[2020-03-15] MEDS: InsuLIN REG 1unit/0.01ml Soln (100units/ml) SC SCH ×4 (06:15→21:53)
[2020-03-15] MEDS: ACCU-CHEK COMFORT CURVE STRIP VI SCH ×4 (06:15→21:52)
[2020-03-15 09:00] VITALS: BP 127/48
[2020-03-15] MEDS: METOPROLOL SUCCINATE XL 50 MG TAB PO SCH (10:00)
[2020-03-15] MEDS: PANTOPRAZOLE 40 MG TAB PO SCH (10:33)
[2020-03-15] MEDS: AMIODARONE HCL 200 MG TAB PO SCH (10:33)
[2020-03-15] MEDS: MAGNESIUM OXIDE 400 MG TAB PO SCH ×2 (10:33→21:50)
[2020-03-15] MEDS: SACUBITRIL-VALSARTAN 24mg/26mg TAB PO SCH ×2 (10:33→21:50)
[2020-03-15 13:00] VITALS: BP 125/56
--- NOTE | 2020-03-15 15:30 | NUR ---
INHOUSE LAB REPORTS OUT OF [employer] SUPPLY FOR INHOUSE TESTING. --SEND-OUTS ONLY AT THIS MOMENT. COLLECTED SPECIMEN FOR SEND-OUT; TAKEN TO LAB.
[2020-03-15 16:41] VITALS: BP 123/53
--- NOTE | 2020-03-15 19:28 | NUR ---
RECEIVED PATIENT FROM DAY SHIFT RN . PATIENT RESTING IN BED. NO S/S OF DISTRESS NOTED. DENIED PAIN FOR NOW. POC INSTRUCTED AND ENCOURAGED PATIENT TO CALL FOR LINE ASSEMBLER AIRCRAFT IF NEEDED. BED IN LOWEST POSITION WITH SIDE RAILS UP X 2. CALL SANDOVAL WITHIN REACH. ALARM ON. CONTINUE TO MONITOR FOR CHANGES Q1H AND PRN.
[2020-03-15] MEDS: ATORVASTATIN 20 MG TAB PO SCH (21:50)
--- NOTE | 2020-03-15 21:54 | NUR ---
ACCU-CHECK, BS 173. INSULIN GIVEN ORDERED. CONTINUE TO MONITOR.
[2020-03-15 22:00] VITALS: BP 118/68
--- NOTE | 2020-03-16 02:16 | NUR ---
PATIENT SLEEPING. NO S/S OF DISTRESS NOTED. CONTINUE TO MONITOR.
--- NOTE | 2020-03-16 03:40 | NUR ---
PATIENT GOT TO BEDSIDE COMMODE WITH SALES MGR. PATIENT TOLERATED WELL AND HAD BM. CONTINUE TO MONITOR.
[2020-03-16 05:00] VITALS: BP 121/70
[2020-03-16] MEDS: ACCU-CHEK COMFORT CURVE STRIP VI SCH ×3 (06:15→17:59)
[2020-03-16] MEDS: POTASSIUM CHL 20 Meq TABLET PO SCH ×2 (06:15→10:16)
[2020-03-16] MEDS: InsuLIN REG 1unit/0.01ml Soln (100units/ml) SC SCH ×3 (06:15→17:59)
--- NOTE | 2020-03-16 06:15 | NUR ---
ACCU-CHECK, BS 109. NO COVERAGE. CONTINUE TO MONITOR.
[2020-03-16] MEDS: FUROSEMIDE INJECTION 100 MG in D5W 5% 100 ML IV SCH (09:00)
[2020-03-16 09:53] VITALS: BP 135/54
[2020-03-16] MEDS: MAGNESIUM OXIDE 400 MG TAB PO SCH (10:15)
[2020-03-16] MEDS: SACUBITRIL-VALSARTAN 24mg/26mg TAB PO SCH (10:15)
[2020-03-16] MEDS: PANTOPRAZOLE 40 MG TAB PO SCH (10:16)
[2020-03-16] MEDS: METOPROLOL SUCCINATE XL 50 MG TAB PO SCH (10:16)
[2020-03-16] MEDS: AMIODARONE HCL 200 MG TAB PO SCH (10:16)
--- NOTE | 2020-03-16 12:39 | NUR ---
Nutrition Followup Notes Wt: 84.9 kg Pt was with MD at bedside. per records pt s/p LHC. pt is currently on cardiac diet with adequate PO of 75% x 4 per RN doc. pt with no distress noted per nursing Est energy needs 1718-1976kcal (20-23 kcal/kg BW 85.9kg) Est protein needs 69-86g (0.8-1g/kg BW 85.6kg) Will reassess prn. LABS: no new labs today POC GLU 109 H GI: Pt had 1 BM today per RN doc. BS: 17 mod risk. Refer to wound assessment report for full details. PES: Overweight aeb pt with a BMI of 25.0 kg/m2 r/t caloric intake in excess of needs Comments Will continue to monitor PO intake, skin status, pertinent labs and weight trends. Will f/u in 3-5 days. 1) Refer pt to OPD on DC. 2) Continue current plan of care
[2020-03-16 13:01] VITALS: BP 138/64
--- NOTE | 2020-03-16 14:33 | NUR ---
AUTOMATIC TYPEWRITER INSPECTOR SPOKE TO PT. PT AWARE OF SNF BED UNAVAILABILITY; PT AND PT's SON AGREE FOR PT TO RETURN HOME.
--- NOTE | 2020-03-16 14:46 | NUR ---
DR. CASSIDY PAGED FOR AWARENESS OF CASE MANAGEMENT DC PLANNING. SPOKE TO HAND TWISTER (VINCE) AWAITING CALL BACK.
[2020-03-16 16:59] VITALS: BP 129/74
--- NOTE | 2020-03-16 17:19 | NUR ---
D/C Planning Regarding social service consult for SNF placement to [facility]. Clinical information was faxed to [facility] on Sunday03/15/20. Placed follow up called to facility this morning and per product sales representative they are unable to accommodate patient needs. Informed patient [facility] is unable to accept him at this time and provided him with different facilities such as [facility], [facility] and [facility]. Per patient if he is unable to go to [facility] he prefers to be discharge home with home health and stay with his son Juan. Informed GUSTAVO Garibay.
[2020-03-16 17:21] VITALS: BP 129/74
--- NOTE | 2020-03-16 18:57 | NUR ---
DISCHARGE INSTRUCTIONS PROVIDED TO PT. PT VERBALIZED UNDERSTANDING FOR CONTINUATION OF HOME MEDICATIONS AND ADJUSTMENT OF LASIX AND POTASSIUM NEEDED WHEN SWELLING PRESENT. PT VERBALIZED UNDERSTANDING FOR FOLLOW UP APPOINTMENT. EDUCATIONAL MATERIAL PROVIDED, ALL QUESTIONS AND CONCERNS ADDRESSED. IV CATHETER DC, CATHETER INTACT NO PHLEBITIS, TELE BOX REMOVED AND RETURNED TO TELE DEPT. PT SAFELY ESCORTED OUT OF UNIT VIA WHEELCHAIR.
== END 2020-03-16 16:45 | disposition home health service (06) | DRG 280 ==
LOC: TELE-WESTW 19:49
PROVIDERS: ADMIT Internal Medicine Cardiovascular Disease; ATTEND Internal Medicine Cardiovascular Disease
PROC: 4A023N7 Measurement of Cardiac Sampling and Pressure, Left Heart, Percutaneous Approach (ICD-10-PCS; principal; 2020-03-05)
PROC: B2111ZZ Fluoroscopy of Multiple Coronary Arteries using Low Osmolar Contrast (ICD-10-PCS; 2020-03-05)
PROC: B2151ZZ Fluoroscopy of Left Heart using Low Osmolar Contrast (ICD-10-PCS; 2020-03-05)
DX: I11.0 Hypertensive heart disease with heart failure (principal); I21.4 Non-ST elevation (NSTEMI) myocardial infarction; I63.9 Cerebral infarction, unspecified; E44.0 Moderate protein-calorie malnutrition; D68.59 Other primary thrombophilia; I47.2 Ventricular tachycardia; I50.23 Acute on chronic systolic (congestive) heart failure; I42.0 Dilated cardiomyopathy; I25.5 Ischemic cardiomyopathy; E78.5 Hyperlipidemia, unspecified; I95.9 Hypotension, unspecified; E87.6 Hypokalemia; R27.0 Ataxia, unspecified; Z95.5 Presence of coronary angioplasty implant and graft; I48.91 Unspecified atrial fibrillation; I25.10 Atherosclerotic heart disease of native coronary artery without angina pectoris; I67.2 Cerebral atherosclerosis; I70.0 Atherosclerosis of aorta; J44.9 Chronic obstructive pulmonary disease, unspecified; Z86.73 Personal history of transient ischemic attack (TIA), and cerebral infarction without residual deficits; Z87.891 Personal history of nicotine dependence; Z95.810 Presence of automatic (implantable) cardiac defibrillator; Z20.828 Contact with and (suspected) exposure to other viral communicable diseases; Z82.49 Family history of ischemic heart disease and other diseases of the circulatory system; Z83.3 Family history of diabetes mellitus; Z80.1 Family history of malignant neoplasm of trachea, bronchus and lung; Z79.82 Long term (current) use of aspirin; Z88.1 Allergy status to other antibiotic agents; M47.816 Spondylosis without myelopathy or radiculopathy, lumbar region; I73.9 Peripheral vascular disease, unspecified
CPT/HCPCS: 36415; 70450; 71045; 72125; 73090; 80048; 80053; 82962; 83880; 84132; 85025; 85610; 85730; 93458; 97110; 97116; 97530; 99152; 99153; G0378; J1815; J2250; J2405; J7060